=== PATIENT | female | born 1985 | race Caucasian/White ===

== ENCOUNTER 2016-09-16 06:07 | Day surgery (SDC) | payer OTHER ==
[~2016-09-16 06:07] MED LIST: ADVIL PO; PROBIOTIC; T PO
== END 2016-09-16 23:59 | disposition home or self-care (01) ==
LOC: MSC 06:07
PROVIDERS: Surgery Plastic and Reconstructive Surgery
PROC: 0HUV0JZ Supplement Bilateral Breast with Synthetic Substitute, Open Approach (ICD-10-PCS; principal; 2016-09-16 07:15)
PROC: 0H0V0JZ Alteration of Bilateral Breast with Synthetic Substitute, Open Approach (ICD-10-PCS; 2016-09-16 07:15)
DX: Z41.1 Encounter for cosmetic surgery (principal)
CPT/HCPCS: 84703; A9270-GY; C1789; J0690; J1580; J2250; J2270; J2405; J2550; J3010